=== PATIENT | male | born 1955 | race Caucasian/White ===

== ENCOUNTER 2020-05-21 19:39 | Emergency (ER) | payer MEDICARE ==
[~2020-05-21] VITALS: Ht 182.9 cm; Wt 95.7 kg
--- NOTE | 2020-05-21 20:16 | NUR ---
patient resting sitting up in bed in NAD. c/o 11/16 RUQ abdominal pain. coming from urgent care after CT of abdomen. denies N/V/D. call abdul in reach. visitor at bedside. patient notified he is NPO until further notice. will continue to monitor.
[2020-05-21] MEDS ORDERED: ONDANSETRON ODT 4 MG ONE (20:23)
[2020-05-21] MEDS ORDERED: HYDROmorphone 1 MG/ML, 1ML INJ ONE (20:24)
[2020-05-21] MEDS ORDERED: ONDANSETRON ODT 4 MG PO ONE (20:30)
[2020-05-21] MEDS ORDERED: HYDROmorphone 1 MG/ML, 1ML INJ IM ONE (20:30)
[2020-05-21 20:47] LABS: BASOPHILS % (AUTO) 1 % (0-1); EOSINOPHILS % (AUTO) 5 % (1-7); LYMPHOCYTES % (AUTO) 25 % (22-44); MEAN CORPUSCULAR HEMOGLOBIN 31.3 pg (27.5-34.5); MEAN CORPUSCULAR HGB CONC 35.3 g/dL (33.2-36.2); MEAN PLATELET VOLUME 9.1 fL (7.4-10.4); MONOCYTES % (AUTO) 9 % (2-9); NEUTROPHILS % (AUTO) 61 % (42-75); PLATELET COUNT 165 x10^3/uL (130-400); RED BLOOD COUNT 5.23 x10^6/uL (4.38-5.82); RED CELL DISTRIBUTION WIDTH 13.1 % (9.4-14.8)
[2020-05-21 20:48] LABS: MD NO
[2020-05-21 20:57] LABS: ALANINE AMINOTRANSFERASE 47 U/L (12-78); ALBUMIN 3.7 g/dL (3.4-5.0); ANION GAP 7 mmol/L (5-15); CALCIUM 8.5 mg/dL (8.5-10.1); CHLORIDE 110 mmol/L (98-107)
[2020-05-21 20:59] LABS: ALKALINE PHOSPHATASE 44 U/L (45-117); BILIRUBIN,TOTAL 0.3 mg/dL (0.2-1.0); TOTAL PROTEIN 6.9 g/dL (6.4-8.2)
--- NOTE | 2020-05-21 21:00 | NUR ---
PATIENT REPORTS PAIN TO "BE MORE DULL" BUT RATES PAIN 8-9/10, RATHER THAN 10/10 BEFORE. PATIENT HAS FLACC 0 AND REPEATS QUESTION , "HAVE YOU EVER SEEN THIS HAPPEN WHERE SOMEONE GETS THERE GALL BLADDER TAKEN OUT AND NEEDS TO COME TO THE ER?". CALL SAUCEDA IN REACH. VISITOR AT BEDSIDE. BP DECREASING TO MORE STABLE RESULT. WILL CONTINUE TO MONITOR.
--- NOTE | 2020-05-21 21:52 | NUR ---
US COMPLETE. PATIENT REMAINS SITTING UP IN BED. CALL SAUCEDA IN REACH. VS REMAIN STABLE. WILL CONTINUE TO MONITOR.
--- NOTE | 2020-05-21 22:46 | NUR ---
patient ambulating up in room. denies pain at this time. steady gait. call abdul in reach. vs remain stable. will continue to monitor.
--- NOTE | 2020-05-21 23:10 | NUR ---
patient not in room for dc instruction review. patient found in registration que. i asked patient to come see me prior to departing. discharge instructions reviewed at 1181. patient verbalized understanding after repeated review of f/u with pcp for incidental findings of cyst on kidney and general surgeon referred to for gall stones. patient had multiple questions and these were all answered to patient's satisfaction. this was also printed on dc instructions. no iv placed during this er visit. steady gait to lobby. patient acknowledges restriction of driving due to receiving dilaudid IM tonight. waiting in lobby for to pick him up. all personal belongings wiht patient
[2020-05-21 23:20] VITALS: BP 150/97
== END 2020-05-21 23:23 | disposition home or self-care (01) ==
LOC: ED 23:00
DX: K80.20 Calculus of gallbladder without cholecystitis without obstruction (principal); N28.1 Cyst of kidney, acquired; Z87.891 Personal history of nicotine dependence; R94.31 Abnormal electrocardiogram [ECG] [EKG]
CPT/HCPCS: 36415; 76700; 80053; 83690; 85025; 93005; 96372; 99285; J1170; Q0162

== ENCOUNTER → 2020-05-21 | Outpatient (CLI) | payer MEDICARE | END | disposition home or self-care (01) | LOC: CFH 12:10 | DX: K80.20 Calculus of gallbladder without cholecystitis without obstruction (principal) | CPT/HCPCS: 74176 ==

== ENCOUNTER → 2020-05-24 | Outpatient (CLI) | payer MEDICARE | END | disposition home or self-care (01) | LOC: STAR 11:26 | PROVIDERS: ATTEND Surgery | DX: Z01.818 Encounter for other preprocedural examination (principal); K80.10 Calculus of gallbladder with chronic cholecystitis without obstruction; Z20.822 Contact with and (suspected) exposure to COVID-19 | CPT/HCPCS: 93005; U0003 ==

== ENCOUNTER 2020-05-29 06:07 | Day surgery (SDC) | payer MEDICARE ==
[~2020-05-29] VITALS: Ht 182.9 cm; Wt 96.1 kg
[2020-05-29] MEDS ORDERED: BUPIVACAINE/PF 0.5% ONE (06:36)
[2020-05-29] MEDS ORDERED: EPINEPHRINE 1 MG/ML, 1ML ONE (06:36)
[2020-05-29 07:10] VITALS: BP 145/93
[2020-05-29] MEDS ORDERED: CHLORHEXIDINE 15 ML UDC PO ONE (07:30)
[2020-05-29] MEDS ORDERED: LACTATED RINGERS 1,000 ML IV SCH (07:30)
[2020-05-29] MEDS ORDERED: LIDOCAINE-MPF 1%, 2ML INFIL ONE (07:30)
[2020-05-29] MEDS ORDERED: MIDAZOLAM 1 MG/ML, 2ML ONE (07:36)
[2020-05-29] MEDS ORDERED: PROPOFOL 50 ML ONE (07:36)
[2020-05-29] MEDS ORDERED: FENTANYL PF 250 MCG/5ML ONE (07:37)
[2020-05-29] MEDS ORDERED: ONDANSETRON 2MG/ML, 2ML ONE (07:39)
[2020-05-29] MEDS ORDERED: ROCURONIUM 10MG/ML,5ML ONE (07:39)
[2020-05-29] MEDS ORDERED: SUCCINYLCHOLINE 20 MG/ML, 10ML ONE (07:39)
[2020-05-29] MEDS ORDERED: PROPOFOL 10 MG/ML, 20ML ONE (07:39)
[2020-05-29] MEDS ORDERED: CEFAZOLIN 1,000 MG ONE (08:19)
[2020-05-29] MEDS ORDERED: DEXAMETHASONE 4 MG/ML, 1ML ONE (08:19)
[2020-05-29] MEDS ORDERED: PROMETHAZINE 25 MG/ML, 1ML IVPush PRN (09:00)
[2020-05-29] MEDS ORDERED: LABETALOL 5MG/ML, 20ML IV PRN (09:00)
[2020-05-29] MEDS ORDERED: DIPHENHYDRAMINE 50 MG/ML, 1ML IVPush PRN (09:00)
[2020-05-29] MEDS ORDERED: ONDANSETRON 2MG/ML, 2ML IVPush PRN (09:00)
[2020-05-29] MEDS ORDERED: MEPERIDINE/PF 25MG/0.5ML IVPush PRN (09:00)
[2020-05-29] MEDS ORDERED: EPHEDRINE 50 MG/ML, 1ML IM PRN (09:00)
[2020-05-29] MEDS ORDERED: DIAZEPAM 5 MG/ML, 2ML IVPush PRN (09:00)
[2020-05-29] MEDS ORDERED: OXYcodone 5 MG/5 ML ORAL.SOL UDC PO PRN (09:00)
[2020-05-29] MEDS ORDERED: EPHEDRINE 50 MG/ML, 1ML IVPush PRN (09:00)
[2020-05-29] MEDS ORDERED: FENTANYL PF 100 MCG/2ML ONE ×2 (09:59→10:20)
[2020-05-29] MEDS: FENTANYL PF 100 MCG/2ML IV PRN ×5 (10:01→10:38)
[2020-05-29] MEDS ORDERED: OXYcodone 5 MG/5 ML ORAL.SOL UDC ONE (10:10)
[2020-05-29] MEDS ORDERED: KETOROLAC 30 MG/1 ML ONE (10:29)
[2020-05-29] MEDS ORDERED: KETOROLAC 30 MG/1 ML IVPush PRN (10:30)
[2020-05-29] MEDS ORDERED: MORPHINE SULFATE 4 MG/ML, 1ML ONE (10:40)
[2020-05-29] MEDS: morphine SULFATE 10 MG/ML, 1ML IVPush PRN ×2 (10:45→11:41)
== END 2020-05-29 12:55 | disposition home or self-care (01) ==
LOC: OUT 06:07
PROVIDERS: ATTEND Surgery
DX: K81.2 Acute cholecystitis with chronic cholecystitis (principal); K66.0 Peritoneal adhesions (postprocedural) (postinfection); I10 Essential (primary) hypertension; Z79.899 Other long term (current) drug therapy; Z98.890 Other specified postprocedural states
CPT/HCPCS: 47562; 88304; J0171; J0330; J0690; J1100; J1885; J2250; J2270; J2405; J2704; J3010; J7120